=== PATIENT | male | born 1995 | race Hispanic/Latino ===

== ENCOUNTER 2024-11-19 12:32 | Emergency (ER) | payer SELFPAY ==
[2024-11-19] MEDS ORDERED: Ondansetron PF 4 MG/2 ML Vial ONE (13:04)
[2024-11-19 13:06] LABS: #Basophils 0.1 thou/uL (0.0-0.2); #Eosinophils 0.0 thou/uL (0.0-0.7); #Lymphocytes 2.7 thou/uL (1.20-3.40); #Monocytes 1.0 thou/uL (0.11-0.59); #Neutrophils 13.1 thou/uL (1.40-6.50); %Basophils 0.6 % (0.0-1.0); %Eosinophils 0.1 % (0.0-10.0); %Lymphocytes 16.1 % (21.0-51.0); %Monocytes 6.1 % (0.0-10.0); %Neutrophils 77.2 % (42.0-75.0); Hematocrit 59.3 % (42.0-52.0); Hemoglobin 20.2 g/dL (14.0-18.0); Mean Corpuscular Hemoglobin 29.7 pg (27.0-31.0); Mean Corpuscular Volume 87.0 fl (78.0-98.0); Platelet Count 403 10x3/uL (130-400); Red Blood Cell (RBC) Count 6.82 mill/uL (4.70-6.10); White Blood Cell (WBC) Count 16.9 10x3/uL (4.8-10.8)
[2024-11-19 13:39] LABS: ALT (SGPT) 44 U/L (Less than 45); AST (SGOT) 35 U/L (11-34); Albumin 6.0 g/dL (3.1-4.5); Alkaline Phosphatase 75 U/L (40-110); Anion Gap 30 mmol/L (10-20); BUN (Urea Nitrogen) 30 mg/dL (8.9-20.6); Bilirubin, Total 2.1 mg/dL (0.3-1.2); CK (CPK) 304 U/L (30-200); Calc. Creatinine Clearance 0 mL/min (70-130); Calcium 12.5 mg/dL (7.8-10.44); Carbon Dioxide 16 mmol/L (22-29); Chloride 92 mmol/L (98-107); Globulin 4.3 g/dL (2.4-3.5); Glucose 129 mg/dL (70-105); Potassium 4.4 mmol/L (3.5-5.1); Sodium 134 mmol/L (136-145); Troponin I Less than 0.010 ng/mL (< 0.028)
== END 2024-11-19 17:40 | disposition home or self-care (01) ==
LOC: NAV ERS 12:32
DX: N17.9 Acute kidney failure, unspecified (principal)
CPT/HCPCS: 80053; 82550; 83605; 84484; 85025; 96361; 96374; 96375; J2405; J3360; J7030